=== PATIENT | female | born 2000 | race African-American/Black ===

== ENCOUNTER 2018-05-18 15:17 | Emergency (ER) | payer SELFPAY ==
[~2018-05-18] VITALS: Ht 165.1 cm; Wt 82.8 kg
[2018-05-18 15:47] LABS: APPEARANCE CLEAR ((CLEAR)); BILIRUBIN NEGATIVE; BLOOD SMALL; COLOR AMBER ((YELLOW)); GLUCOSE (STRIP) NEGATIVE; KETONES 5; LEUKOCYTES TRACE; NITRITE NEGATIVE; PROTEIN (STRIP) 30; SPECIFIC GRAVITY 1.032 (1.000-1.030)
[2018-05-18 15:55] LABS: BACTERIA RARE /HPF; EPITHELIAL CELLS RARE /HPF; MUCUS 3+ /LPF; UCUL ADDED? NO; WHITE BLOOD CELLS 0-5 /HPF (0-5)
[2018-05-18 15:58] LABS: HEMATOCRIT 41.9 % (36.0-46.0); HEMOGLOBIN 14.1 G/DL (11.9-15.5); MCH 28.5 PG (29.0-34.0); MCHC 33.7 G/DL (30.0-36.0); MCV 84.8 FL (83-99); PLATELET COUNT 199 K/uL (156-360); RBC DIS.WIDTH-CV 12.7 % (11.8-14.6); RBC DIS.WIDTH-SD 39.4 % (39-53); RED BLOOD COUNT 4.94 M/uL (3.80-5.20)
[2018-05-18 16:07] LABS: CHLORIDE 103 mEq/L (99-109); SODIUM 137 mEq/L (136-147)
[2018-05-18 16:09] LABS: GLUCOSE 86 mg/dL (70-99)
[2018-05-18 16:13] LABS: GFR ESTIMATE (CALCULATED) > 59 mL/min/
[2018-05-18 16:14] LABS: UREA NITROGEN (BUN) 10 mg/dL (9-23)
[2018-05-18 16:21] LABS: QUANTITATIVE HCG < 4.0 MIU/ML
[2018-05-18 16:53] VITALS: BP 113/68
== END 2018-05-18 16:56 | disposition home or self-care (01) ==
LOC: EME 15:17
PROVIDERS: Nurse Practitioner Family
DX: R10.30 Lower abdominal pain, unspecified (principal); R19.7 Diarrhea, unspecified; E86.0 Dehydration
CPT/HCPCS: 80048; 81003; 84702; 85027; 87086; 99281; 99284; J1885

== ENCOUNTER → 2018-05-20 | Outpatient (CLI) | payer SELFPAY | END | disposition home or self-care (01) | LOC: AMB 15:15 | DX: R10.30 Lower abdominal pain, unspecified (principal); R93.5 Abnormal findings on diagnostic imaging of other abdominal regions, including retroperitoneum; Z88.0 Allergy status to penicillin | CPT/HCPCS: 99212 ==